=== PATIENT | male | born 1995 | race Caucasian/White ===

== ENCOUNTER 2016-07-14 19:06 | Emergency (ER) | payer OTHER ==
[~2016-07-14] VITALS: Ht 188 cm; Wt 81.8 kg
[2016-07-14 19:08] VITALS: TEMP 98.1
[2016-07-14] MEDS ORDERED: NORCO 325 MG-51 TAB PO (20:09)
[2016-07-14] MEDS ORDERED: CRUTCHES MC (20:09)
[2016-07-14 21:30] VITALS: BP 124/78; PULSE 61
== END 2016-07-14 23:03 | disposition home or self-care (01) ==
LOC: COL.ER 19:06
DX: S82.841A Displaced bimalleolar fracture of right lower leg, initial encounter for closed fracture (principal); V00.131A Fall from skateboard, initial encounter; Y92.830 Public park as the place of occurrence of the external cause
CPT/HCPCS: J2405; J2704; J3010; J7030